=== PATIENT | male | born 1990 | race Caucasian/White ===

== ENCOUNTER 2016-07-29 13:04 | Emergency (ER) | payer MEDICARE, OTHER ==
[~2016-07-29] VITALS: Ht 172.7 cm; Wt 68.9 kg
[~2016-07-29 13:04] MED LIST: [UNRECOGNIZED DRUG - REMARK]
[2016-07-29 13:14] VITALS: BP 140/58
--- NOTE | 2016-07-29 13:59 | NUR ---
Patient ambulated to bed 4. RN evaluating patient at bedside.
--- NOTE | 2016-07-29 14:15 | NUR ---
PATIENT PRESENTS TO ED WITH BODYACHES CONGESTION AND PRODUCTIVE COUGH . PT STATES . DENIES N/V/D; SKIN IS PINK/WARM/DRY; AAOX4 WITH EVEN AND STEADY GAIT; LUNGS CLEAR BL; HR EVEN AND REGULAR; PT DENIES ANY FEVER, CP PATIENT STATES PAIN OF 05/10 AT THIS TIME; VSS; PATIENT POSITIONED FOR COMFORT; HOB ELEVATED; BEDRAILS UP X2; BED DOWN. ER MD MADE AWARE OF PT STATUS.
--- NOTE | 2016-07-29 14:27 | NUR ---
Patient discharged with v/s stable. Written and verbal after care instructions given and explained. Patient alert, oriented and verbalized understanding of instructions. Ambulatory with steady gait. All questions addressed prior to discharge. ID band removed. Patient advised to follow up with PMD. Rx of SUDAFED/ALBUTEROL/GUAIATUSSIN given. Patient educated on indication of medication including possible reaction and side effects. Opportunity to ask questions provided and answered.
[2016-07-29 14:28] VITALS: BP 119/65
== END 2016-07-29 14:27 | disposition home or self-care (01) ==
LOC: MED 13:04
DX: J06.9 Acute upper respiratory infection, unspecified (principal); R03.0 Elevated blood-pressure reading, without diagnosis of hypertension

== ENCOUNTER 2016-08-13 17:47 | Emergency (ER) | payer MEDICARE, OTHER ==
[~2016-08-13] VITALS: Ht 175.3 cm; Wt 68.9 kg
[~2016-08-13 17:47] MED LIST changes: +CHLO4TAB; -[UNRECOGNIZED DRUG - REMARK]
[2016-08-13 18:55] VITALS: BP 107/72
--- NOTE | 2016-08-13 23:32 | NUR ---
PATIENT LEFT WITHOUT BEING SEEN BY DR. WAGNER. NO FURTHER CARE PROVIDED FOR PATIENT.
== END 2016-08-13 23:32 | disposition left against medical advice (07) ==
LOC: MED 17:47
DX: R21 Rash and other nonspecific skin eruption (principal); Z53.21 Procedure and treatment not carried out due to patient leaving prior to being seen by health care provider